=== PATIENT | female | born 1960 | race Caucasian/White ===

== ENCOUNTER 2016-12-22 07:59 | Emergency (ER) | payer MEDICAID, OTHER ==
[~2016-12-22] VITALS: Ht 162.6 cm; Wt 70.0 kg
[2016-12-22 08:10] VITALS: BP 115/68
== END 2016-12-22 10:59 | disposition home or self-care (01) ==
LOC: ER 09:07
DX: R09.89 Other specified symptoms and signs involving the circulatory and respiratory systems (principal); E78.00 Pure hypercholesterolemia, unspecified; Z90.49 Acquired absence of other specified parts of digestive tract
CPT/HCPCS: 70360; 99284